=== PATIENT | female | born 1960 | race Caucasian/White ===

== ENCOUNTER 2020-07-27 07:59 | Outpatient (CLI) | payer BC, OTHER | END 2020-07-27 23:59 | disposition home or self-care (01) | LOC: CFH 07:59 | PROVIDERS: ATTEND Internal Medicine Cardiovascular Disease | DX: R94.31 Abnormal electrocardiogram [ECG] [EKG] (principal); R06.02 Shortness of breath | CPT/HCPCS: 93306 ==